=== PATIENT | male | born 1985 | race Caucasian/White ===

== ENCOUNTER 2023-08-24 19:37 | Inpatient (IN) | payer SELFPAY ==
[~2023-08-24] VITALS: Ht 180.3 cm; Wt 70.9 kg
[2023-08-24 20:13] LABS: BASO # 0.1 10^3/uL (0.0-0.2); BASO % 0.3 % (0.0-1.0); EOS % 0.2 % (0.0-3.0); HEMATOCRIT 47.9 % (42.0-52.0); HEMOGLOBIN 16.4 g/dl (13.5-17.5); LYMPH # 1.1 10^3/uL (1.5-5.0); LYMPH % 5.3 % (24.0-44.0); MEAN CORPUSCULAR HEMOGLOBIN 32.3 pg (27.0-33.0); MEAN CORPUSCULAR HGB CONC 34.2 g/dl (32.0-36.5); MEAN CORPUSCULAR VOLUME 94.3 fl (80.0-96.0); MONO # 1.9 10^3/uL (0.0-0.8); MONO % 9.1 % (2.0-8.0); NEUTROPHILS # 17.3 10^3/uL (1.5-8.5); NEUTROPHILS % 84.6 % (36.0-66.0); PLATELET COUNT, AUTOMATED 235 10^3/uL (150-450); RED BLOOD COUNT 5.08 10^6/uL (4.30-6.10); WHITE BLOOD COUNT 20.5 10^3/uL (4.0-10.0)
[2023-08-24 20:51] LABS: BLOOD UREA NITROGEN 12 MG/DL (9-23); CARBON DIOXIDE LEVEL 29 MMOL/L (20-31); CHLORIDE LEVEL 102 MMOL/L (98-107); CREATININE FOR GFR 0.73 MG/DL (0.70-1.30); GLOMERULAR FILTRATION RATE > 60.0 (>60); GLUCOSE, FASTING 123 MG/DL (60-100); POTASSIUM SERUM 4.3 MMOL/L (3.5-5.1); SODIUM LEVEL 136 MMOL/L (136-145)
[2023-08-24] MEDS: ACETAMINOPHEN TAB 650MG DOSE (2X325MG) PO ONE (21:00)
[2023-08-24 21:10] LABS: RSV AMPLIFICATION NEGATIVE (NEGATIVE)
[2023-08-25] MEDS ORDERED: ISOVUE-370 76% 100ML VIAL As Ordered ONE (04:36)
[2023-08-25] MEDS: IPRATROPIUM 0.5MG/ALBUTEROL 2.5MG INH SOL UD 3ML (DUONEB) NEB STA (04:55)
[2023-08-25] MEDS: dexAMETHasone 20MG/5ML VIAL IM ONE (04:59)
[2023-08-25] MEDS: ACETAMINOPHEN 500 MG TAB PO ONE (05:00)
[2023-08-25] MEDS: AZITHROMYCIN 250MG TABLET PO ONE (05:00)
[2023-08-25] MEDS: cefTRIAXone SOD 1 GM in D5W MINI-BAG PLUS 50 ML IV ONE (06:02)
[2023-08-25] MEDS: NICOTINE 21MG/24HR 1 EA TRANSDERMAL TD ONE ×2 (06:30→21:40)
[2023-08-25] MEDS ORDERED: HOME MED LIST COMPLETE! XX SCH (06:45)
[2023-08-25] MEDS: NS 2,220 ML in IV 1 EA IV ONE (08:26)
[2023-08-25] MEDS ORDERED: ACETAMINOPHEN TAB 650MG DOSE (2X325MG) PO PRN (09:00)
[2023-08-25] MEDS ORDERED: LORazepam 2 MG TAB PO PRN (09:00)
[2023-08-25] MEDS: FOLIC ACID 1MG TAB PO SCH (10:34)
[2023-08-25] MEDS: ENOXAPARIN 40MG/0.4ML SYRINGE (J1650 PER 10MG) SC SCH (10:34)
[2023-08-25] MEDS: MULTIVITAMINS/MINERALS THERAP 1 TAB PO SCH (10:34)
[2023-08-25] MEDS: THIAMINE 100 MG TAB PO SCH (10:34)
[2023-08-25 12:35] VITALS: BP 143/81; TEMP 97; O2SAT 96
[2023-08-25] MEDS: IPRATROPIUM 0.5MG/ALBUTEROL 2.5MG INH SOL UD 3ML (DUONEB) NEB SCH (14:00)
[2023-08-25] MEDS: NICOTINE 21MG/24HR 1 EA TRANSDERMAL TD SCH (14:11)
[2023-08-25 19:40] VITALS: BP 133/83; TEMP 97.2; O2SAT 97
[2023-08-25 22:00] VITALS: BP 133/83
[2023-08-25] MEDS: RAMELTEON 8 MG TAB (ROZEREM) PO PRN (23:03)
[2023-08-25] MEDS: ARTIFICIAL TEARS DROPS 15ML BTL (VISINE DRY RELIEF) OU PRN (23:03)
[2023-08-26] MEDS ORDERED: cefTRIAXone SOD 1GM VIAL As Ordered ONE (08:24)
[2023-08-26] MEDS ORDERED: THIAMINE 100 MG TAB As Ordered ONE (08:24)
[2023-08-26] MEDS ORDERED: ENOXAPARIN 40MG/0.4ML SYRINGE (J1650 PER 10MG) As Ordered ONE (08:24)
[2023-08-26] MEDS ORDERED: NICOTINE 21MG/24HR 1 EA TRANSDERMAL As Ordered ONE (08:24)
[2023-08-26] MEDS ORDERED: FOLIC ACID 1MG TAB As Ordered ONE (08:24)
[2023-08-26] MEDS ORDERED: MULTIVITAMINS/MINERALS THERAP 1 TAB As Ordered ONE (08:24)
[2023-08-26] MEDS ORDERED: AZITHROMYCIN 250MG TABLET As Ordered ONE (08:24)
[2023-08-26] MEDS ORDERED: cefTRIAXone SOD 1 GM in D5W MINI-BAG PLUS 50 ML IV SCH (09:00)
[2023-08-26] MEDS ORDERED: AZITHROMYCIN 250MG TABLET PO SCH (09:00)
[2023-08-26 13:19] LABS: ALBUMIN 3.1 G/DL (3.2-5.2); ALKALINE PHOSPHATASE 49 U/L (46-116); ALT/SGPT 19 U/L (7.0-40); AST/SGOT < 8 U/L (<34); BILIRUBIN,TOTAL 0.3 MG/DL (0.3-1.2); BLOOD UREA NITROGEN 11 MG/DL (9-23); CALCIUM LEVEL 8.8 MG/DL (8.5-10.1); CARBON DIOXIDE LEVEL 27 MMOL/L (20-31); CHLORIDE LEVEL 110 MMOL/L (98-107); CREATININE FOR GFR 0.58 MG/DL (0.70-1.30); GLOMERULAR FILTRATION RATE > 60.0 (>60); GLUCOSE, FASTING 138 MG/DL (60-100); MAGNESIUM LEVEL 1.8 MG/DL (1.8-2.4); PHOSPHORUS LEVEL 3.6 MG/DL (2.5-4.9); POTASSIUM SERUM 3.5 MMOL/L (3.5-5.1); SODIUM LEVEL 142 MMOL/L (136-145); TOTAL PROTEIN 5.9 G/DL (5.7-8.2)
[2023-08-26 16:24] LABS: HEMATOCRIT 41.7 % (42.0-52.0); MEAN CORPUSCULAR HEMOGLOBIN 32.1 pg (27.0-33.0); MEAN CORPUSCULAR HGB CONC 33.6 g/dl (32.0-36.5); MEAN CORPUSCULAR VOLUME 95.6 fl (80.0-96.0); PLATELET COUNT, AUTOMATED 221 10^3/uL (150-450); RED BLOOD COUNT 4.36 10^6/uL (4.30-6.10); WHITE BLOOD COUNT 16.1 10^3/uL (4.0-10.0)
[2023-08-29 19:12] LABS: URINE STREP PNEUMONIAE ANTIGEN NOT DETECTED (NOT DETECT)
== END 2023-08-26 10:15 | disposition home or self-care (01) | DRG 720 ==
LOC: M ED 19:37 → M ED INP 08-25 08:58 → M MSPAV 08-25 12:38
PROVIDERS: ADMIT Internal Medicine; ATTEND Internal Medicine
DX: A41.9 Sepsis, unspecified organism (principal); J18.9 Pneumonia, unspecified organism; J44.0 Chronic obstructive pulmonary disease with (acute) lower respiratory infection; F17.210 Nicotine dependence, cigarettes, uncomplicated; F10.10 Alcohol abuse, uncomplicated; Z88.0 Allergy status to penicillin; S22.41XA Multiple fractures of ribs, right side, initial encounter for closed fracture; Y93.E9 Activity, other interior property and clothing maintenance; Y92.018 Other place in single-family (private) house as the place of occurrence of the external cause; Y99.8 Other external cause status; X50.0XXA Overexertion from strenuous movement or load, initial encounter